=== PATIENT | male | born 1955 | race African-American/Black ===

== ENCOUNTER 2017-09-17 10:23 | Day surgery (SDC) | payer OTHER ==
[2017-09-17] MEDS: IOHEXOL 300MG/ML 30 ML BTL ×2 (12:40→13:06)
[2017-09-17] MEDS ORDERED: LIDOCAINE 2% (SDV) 5 ML INJ (13:00)
[2017-09-17] MEDS ORDERED: ONDANSETRON 4 MG INJ (13:00)
[2017-09-17] MEDS ORDERED: ATROPINE 1 MG/10 ML SYRINGE (13:00)
[2017-09-17] MEDS ORDERED: hydrALAzine 20 MG INJ (13:00)
[2017-09-17] MEDS ORDERED: ROCURONIUM 50 MG INJ (13:00)
[2017-09-17] MEDS ORDERED: PROPOFOL 200 MG INJ (13:00)
[2017-09-17] MEDS ORDERED: SUCCINYLCHOLINE CHLORIDE 100 MG/5 ML SYG IV (13:00)
[2017-09-17] MEDS ORDERED: CEFAZOLIN 1 GM INJ (13:00)
[2017-09-17] MEDS ORDERED: GLYCOPYRROLATE 0.4 MG INJ (13:00)
[2017-09-17] MEDS ORDERED: DEXAMETHASONE 4 MG/ML 1 ML INJ (13:00)
[2017-09-17] MEDS ORDERED: MIDAZOLAM 1 MG/ML 2 ML INJ (13:00)
[2017-09-17] MEDS ORDERED: NEOSTIGMINE 3 MG/3 ML SYRINGE (13:00)
== END 2017-09-17 16:30 | disposition home or self-care (01) ==
LOC: SDS 10:23
DX: N35.9 Urethral stricture, unspecified (principal); I10 Essential (primary) hypertension
CPT/HCPCS: 52281; 74430